=== PATIENT | female | born 1995 | race American Indian/Alaskan Native ===

== ENCOUNTER 2016-11-03 15:38 | Emergency (ER) | payer OTHER ==
[2016-11-03 15:39] VITALS: BMI 18.6
== END 2016-11-03 16:10 | disposition left against medical advice (07) ==
LOC: ED 15:38
DX: Z02.89 Encounter for other administrative examinations (principal); R10.9 Unspecified abdominal pain

== ENCOUNTER 2016-12-10 15:39 | Emergency (ER) | payer SELFPAY ==
[2016-12-10 15:40] VITALS: BMI 18.6
[2016-12-10 15:59] VITALS: TEMP 98.6; O2SAT 100
[2016-12-10] MEDS ORDERED: Sodium Chloride 0.9% 1,000 ML IV STA (16:15)
[2016-12-10] MEDS ORDERED: DiphenhydrAMINE 50 mg/ml Inj IVP STA (16:15)
--- NOTE | 2016-12-10 16:21 | ED PDOC ---
Arrival/HPI <Cherrie Henley - Last Filed: 12/10/16 19:51> - General Historian: Patient - History of Present Illness Time/Duration: Other (2 days) Quality: Aching Context: Home <Odilia Joyner P - Last Filed: 12/12/16 12:11> - General Chief Complaint: Medical Clearance Time Seen by Provider: 12/10/16 16:14 - History of Present Illness Narrative History of Present Illness (Text): 12/10/16 16:18 This 21 yo female with pmh migraines, presents to this ED c/o headache x 2 days. Patient admits similar symptoms in the past. Patient denies trauma, fever, rash, diplopia, dysarthria, weakness, paresthesias, neck pain, sob, cp, abdominal pain, recent travel, sick contact, urinary symptoms, vaginal discharge , leg swelling, calf pain, or abormal gait. She denies other complains. (Odilia Joyner) Past Medical History - Provider Review Nursing Documentation Reviewed: Yes - Infectious Disease Hx of Infectious Diseases: None - Psychiatric Hx Psychophysiologic Disorder: No Hx Anxiety: No Hx Bipolar Disorder: No Hx Depression: No Hx Emotional Abuse: No Hx Hallucinations: No Hx Panic Disorder: No Hx Post Traumatic Stress Disorder: No Hx Psychosis: No Hx Physical Abuse: No Hx Schizophrenia: No Hx Sexual Abuse: No Hx Substance Use: No - Anesthesia Hx Anesthesia: Yes Hx Anesthesia Reactions: No Hx Malignant Hyperthermia: No <Odilia Joyner P - Last Filed: 12/12/16 12:11> Family/Social History - Physician Review Nursing Documentation Reviewed: Yes Family/Social History: No Known Family HX Smoking Status: Never Smoked Hx Alcohol Use: Yes Frequency of alcohol use: Socially Hx Substance Use: No <Odilia Joyner P - Last Filed: 12/12/16 12:11> Allergies/Home Meds <Cherrie Henley - Last Filed: 12/10/16 19:51> <Odilia Joyner P - Last Filed: 12/12/16 12:11> Allergies/Adverse Reactions: Allergies No Known Allergies Allergy (Verified 12/10/16 16:00) Home Medications: Home Meds Medication Instructions Recorded Confirmed No Known Home Med 12/10/16 12/10/16 Review of Systems - Review of Systems Constitutional: Normal. absent: Fatigue, Weight Change, Fevers Eyes: Normal. absent: Vision Changes ENT: Normal. absent: Sore Throat, Rhinorrhea Respiratory: Normal. absent: SOB, Cough Cardiovascular: Normal. absent: Chest Pain, Palpitations Gastrointestinal: Nausea. absent: Abdominal Pain, Diarrhea, Vomiting Genitourinary Female: Normal. absent: Dysuria, Frequency, Hematuria Musculoskeletal: Normal Skin: Normal. absent: Rash Neurological: Headache. absent: Dizziness, Focal Weakness, Gait Changes, Speech Changes, Facial Droop, Disequilibrium, Seizure Endocrine: Normal Hemo/Lymphatic: Normal Psychiatric: Normal <Joyner,Nahim P - Last Filed: 12/12/16 12:11> Physical Exam Temperature: Afebrile Blood Pressure: Normal Pulse: Tachycardic Respiratory Rate: Normal Appearance: Positive for: Well-Appearing, Non-Toxic, Comfortable Pain Distress: None Mental Status: Positive for: Alert and Oriented X 3 - Systems Exam Head: Present: Atraumatic, Normocephalic Pupils: Present: PERRL Extroacular Muscles: Present: EOMI Conjunctiva: Present: Normal Ears: Present: Normal, NORMAL TM Mouth: Present: Moist Mucous Membranes Pharnyx: Present: Normal. No: ERYTHEMA, EXUDATE, TONSILS ENLARGED Nose (External): Present: Atraumatic Nose (Internal): Present: Normal Inspection Neck: Present: Normal Range of Motion. No: Meningeal Signs Respiratory/Chest: Present: Clear to Auscultation, Good Air Exchange. No: Respiratory Distress, Accessory Muscle Use, Wheezes, Retracting, Rhonchi Cardiovascular: Present: Regular Rate and Rhythm, Normal S1, S2. No: Murmurs Abdomen: Present: Normal Bowel Sounds. No: Tenderness, Distention, Peritoneal Signs Back: Present: Normal Inspection. No: CVA Tenderness Upper Extremity: Present: Normal Inspection. No: Cyanosis, Edema Lower Extremity: Present: Normal Inspection. No: Edema Neurological: Present: GCS=15, CN II-XII Intact, Speech Normal, Motor Func Grossly Intact, Normal Sensory Function, Normal Cerebellar Funct, Gait Normal Skin: Present: Warm, Dry, Normal Color. No: Rashes Psychiatric: Present: Alert, Oriented x 3 <Joyner,Nahim P - Last Filed: 12/12/16 12:11> Vital Signs Temp Pulse Resp BP Pulse Ox 12/10/16 17:40 98 H 18 115/60 100 12/10/16 15:52 98.6 F 114 H 19 99/69 L 100 Medical Decision Making <Cherrie Henley - Last Filed: 12/10/16 19:51> Re-evaluation Time: 20:10 Reassessment Condition: Re-examined, Improved - Lab Interpretations Interpretation: Abnormal lab values (Leukopenia on blood test) - EKG Interpretation Interpreted by ED Physician: Yes (NSR @ [address] changes. Normal interval ) Type: 12 lead EKG Comparison: No previous EKG avail. <Odilia Joyner - Last Filed: 12/12/16 12:11> ED Course and Treatment: 12/10/16 19:55 Patient seen and evaluated with PA. On exam, she states she feels "completely better". No fever. No lymphadenopathy palpated. She denies headache. Denies cough or shortness of breath. Neck is supple with no meningeal signs. She is afebrile. Ambulatory. Abdomen soft and nontender. Denies urinary symptoms. As she is ASYMPTOMATIC on re-evaluation with no known exposures or sick contacts or recent travel, will discharge with instructions to closely follow- up with her PMD and I have explicitly discussed with her abnormal blood tests and need for re-evaluation, in laymen's terms. (Cherrie Henley) 12/10/16 19:50 Re-evaluation. Patient feels better. Discussed results and plan with patient who expresses understanding. All questions answered and there is agreement with the plan to discharge home with instructions. Patient stable for discharge. Return if symptoms persist or worsen. (Odilia Joyner) - Lab Interpretations Lab Results: 12/10/16 16:48 12/10/16 16:48 Lab Results 12/10/16 16:48: WBC 2.6 L* D, RBC 4.23, Hgb 13.1, Hct 38.7, MCV 91.5, MCH 31.0, MCHC 33.9, RDW 12.5, Plt Count 202, MPV 9.8, Gran % 45.7 L, Lymph % (Auto) 40.2 H, [place] % (Auto) 13.3 H, Eos % (Auto) 0.4 L, Baso % (Auto) 0.4, Gran # 1.17 L, Lymph # 1.0 L, [place] # 0.3, Eos # 0.0, Baso # 0.01 12/10/16 16:48: Sodium 138, Potassium 4.0, Chloride 102, Carbon Dioxide 26, Anion Gap 14, BUN 10, Creatinine 0.8, Est GFR ( Amer) > 60, Est GFR (Non- Af Amer) > 60, Random Glucose 83, Calcium 9.1, Total Bilirubin 0.4, AST 17, ALT 28, Alkaline Phosphatase 38, Total Protein 7.9, Albumin 3.9, Globulin 3.9, Albumin/Globulin Ratio 1.0 L 12/10/16 16:15: Urine Color Yellow, Urine Appearance Clear, Urine pH 6.5, Ur Specific Clifford 1.020, Urine Protein Negative, Urine Glucose (UA) Negative, Urine Ketones Negative, Urine Blood Moderate H, Urine Nitrate Negative, Urine Bilirubin Negative, Urine Urobilinogen 1.0 H, Ur Leukocyte Esterase Negative, Urine RBC 2 - 5, Urine WBC 0 - 2, Ur Epithelial Cells Many, Urine Bacteria Small , Urine HCG, Qual Negative - Medication Orders Current Medication Orders: Discontinued Medications Diphenhydramine HCl (Benadryl) 25 mg IVP STAT STA Stop: 12/10/16 16:16 Last Admin: 12/10/16 16:53 Dose: 25 mg Sodium Chloride (Sodium Chloride 0.9%) 1,000 mls @ 999 mls/hr IV .Q1H1M STA Stop: 12/10/16 17:15 Last Admin: 12/10/16 16:51 Dose: 999 mls/hr Ketorolac Tromethamine (Toradol) 15 mg IVP STAT STA Stop: 12/10/16 16:18 Last Admin: 12/10/16 16:53 Dose: 15 mg Metoclopramide HCl (Reglan) 10 mg IVP STAT STA Stop: 12/10/16 16:16 Last Admin: 12/10/16 16:53 Dose: 10 mg - 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 / has examined the patient and agrees with the treatment plan. <Cherrie Henley - Last Filed: 12/10/16 19:51> Disposition/Present on Arrival - Present on Arrival Any Indicators Present on Arrival: No - Disposition Have Diagnosis and Disposition been Completed?: Yes Disposition Time: 19:51 Patient Plan: Discharge <Cherrie Henley - Last Filed: 12/10/16 19:51> - Present on Arrival Any Indicators Present on Arrival: No History of DVT/PE: No History of Uncontrolled Diabetes: No Urinary Catheter: No History of Decub. Ulcer: No History Surgical Site Infection Following: None - Disposition Patient Plan: Discharge <Odilia Joyner - Last Filed: 12/12/16 12:11> - Disposition Diagnosis: Viral illness Disposition: HOME/ ROUTINE Condition: GOOD Discharge Instructions (ExitCare): Viral Syndrome (ED) Additional Instructions: You have a low "white blood count". Your white blood count was "2.6" today. This can be seen at times with a viral illness, but this must be rechecked. If you develop ANY return of any symptoms, any headaches, any sore throat, any cough, any neck pain, ANY RASH, any abdominal pain, any nausea or vomiting, any chest pain or shortness of breath, any numbness or weakness, any unsteadiness, any chills or FEVERS, get rechecked immediately. Take motrin for any return of pain or discomfort, but get rechecked. You must follow-up with your physician to have your "WHITE BLOOD COUNT" rechecked, and follow-up with a applied exercise physiologist as well. Referrals: Tracy Grandaos MD [Primary Care Provider] - Follow up with primary
[2016-12-10 16:57] LABS: ADD MANUAL DIFF? NO
[2016-12-10 17:11] LABS: ALKALINE PHOSPHATASE 38 U/L (38-133); ALT/SGPT 28 U/L (7-56); AST/SGOT 17 U/L (15-39); BILIRUBIN,TOTAL 0.4 mg/dL (0.2-1.3); BLOOD UREA NITROGEN 10 mg/dL (7-21); CALCIUM 9.1 mg/dL (8.4-10.5); CARBON DIOXIDE 26 mmol/L (21-33); CHLORIDE 102 mmol/L (98-107); GFR AFRICAN-AMERICAN > 60; GLUCOSE,RANDOM 83 mg/dL (70-110); SODIUM 138 mmol/L (132-148); TOTAL PROTEIN 7.9 g/dL (5.8-8.3)
[2016-12-10 17:21] LABS: BASO # 0.01 K/mm3 (0.0-2.0); BASO % 0.4 % (0.0-3.0); EOS % 0.4 % (1.5-5.0); GRAN # 1.17 (1.4-6.5); GRAN % 45.7 % (50.0-68.0); HEMATOCRIT 38.7 % (36.0-48.0); LYMPH % 40.2 % (22.0-35.0); MEAN CELL VOLUME 91.5 fL (80.0-105.0); MEAN CORPUSCULAR HGB CONC 33.9 g/dl (31.0-37.0); MEAN PLATELET VOLUME 9.8 fl (7.0-11.0); MONO # 0.3 (0.1-0.6); MONO % 13.3 % (1.0-6.0); PLATELET COUNT 202 10^3/uL (120.0-450.0); RED CELL DISTRIBUTION WIDTH 12.5 % (11.5-14.5)
[2016-12-10 17:22] LABS: PH,URINE 6.5 (4.7-8.0); URINE BILIRUBIN NEGATIVE (NEGATIVE); URINE BLOOD MODERATE (NEGATIVE); URINE GLUCOSE (UA) NEGATIVE (NEGATIVE); URINE KETONE NEGATIVE (NEGATIVE); URINE LEUKOCYTE ESTERASE NEGATIVE Leu/uL (NEGATIVE); URINE PROTEIN NEGATIVE mg/dL (<30 mg/dL)
[2016-12-10 17:28] LABS: WHITE BLOOD COUNT 2.6 10^3/ul (4.5-11.0)
[2016-12-10 17:28] LABS: URINE APPEARANCE CLEAR (CLEAR); URINE COLOR YELLOW (YELLOW)
[2016-12-10 17:46] LABS: URINE BACTERIA SMALL (NEG); URINE EPITHELIAL CELLS MANY /hpf (0-5); URINE WBC 0 - 2 /hpf (0-6)
[2016-12-10 18:49] VITALS: BP 115/60; PULSE 98; RESP 18
--- NOTE | 2016-12-11 10:24 | CARD ---
APPROVED REPORT EKG Measurement Heart [id number] <Conclusion> Normal sinus rhythm Normal ECG
== END 2016-12-10 20:27 | disposition home or self-care (01) ==
LOC: ED 15:39
DX: B34.9 Viral infection, unspecified (principal)
CPT/HCPCS: 80053; 81001; 84703; 85025; 93005; 96374; 96375; 99283; J1200; J1885; J2765; J7040

== ENCOUNTER 2017-02-18 09:00 | Emergency (ER) | payer OTHER ==
[2017-02-18 09:15] VITALS: TEMP 98.6; BMI 16.8
--- NOTE | 2017-02-18 09:51 | ED PDOC ---
Arrival/HPI - General Chief Complaint: Flu-like Symptoms Time Seen by Provider: 02/18/17 09:43 Historian: Patient - History of Present Illness Narrative History of Present Illness (Text): 02/18/17 09:43 This 21 yo female presents to this ED c/o nausea, vomiting , and sore throat x 2 weeks. Symptoms has worsen today. Denies fever, sob, cp, andominal pain, rectal bleeding, trauma, sick contact, or recent travel. LMP: January 29, 2017 Time/Duration: Other (2 weeks) Context: Home Past Medical History - Provider Review Nursing Documentation Reviewed: Yes - Infectious Disease Hx of Infectious Diseases: None - Psychiatric Hx Psychophysiologic Disorder: No Hx Anxiety: No Hx Bipolar Disorder: No Hx Depression: No Hx Emotional Abuse: No Hx Hallucinations: No Hx Panic Disorder: No Hx Post Traumatic Stress Disorder: No Hx Psychosis: No Hx Physical Abuse: No Hx Schizophrenia: No Hx Sexual Abuse: No Hx Substance Use: No - Anesthesia Hx Anesthesia: Yes Hx Anesthesia Reactions: No Hx Malignant Hyperthermia: No Family/Social History - Physician Review Nursing Documentation Reviewed: Yes Family/Social History: No Known Family HX Smoking Status: Never Smoked Hx Alcohol Use: Yes Frequency of alcohol use: Socially Hx Substance Use: No Allergies/Home Meds Allergies/Adverse Reactions: Allergies No Known Allergies Allergy (Verified 02/18/17 09:08) Review of Systems - Review of Systems Constitutional: Normal. absent: Fatigue, Weight Change, Fevers, Night Sweats Eyes: Normal ENT: Sore Throat. absent: Rhinorrhea, Epistaxis, Sinus Congestion Respiratory: Normal. absent: SOB, Cough Cardiovascular: Normal Gastrointestinal: Nausea, Vomiting. absent: Abdominal Pain, Stool Changes, Hematochezia, Anorexia Genitourinary Female: Normal. absent: Dysuria, Frequency, Hematuria, Vaginal Bleeding, Vaginal Discharge Musculoskeletal: Normal. absent: Back Pain, Neck Pain Skin: Normal. absent: Rash Neurological: Normal Endocrine: Normal Hemo/Lymphatic: Normal Psychiatric: Normal Physical Exam Vital Signs Temp Pulse Resp BP Pulse Ox 02/18/17 09:12 98.6 F 98 H 18 101/71 100 Temperature: Afebrile Blood Pressure: Normal Pulse: Regular Respiratory Rate: Normal Appearance: Positive for: Well-Appearing, Non-Toxic, Comfortable Pain Distress: None Mental Status: Positive for: Alert and Oriented X 3 - Systems Exam Head: Present: Atraumatic, Normocephalic Pupils: Present: PERRL Extroacular Muscles: Present: EOMI Conjunctiva: Present: Normal Mouth: Present: Moist Mucous Membranes Neck: Present: Normal Range of Motion Respiratory/Chest: Present: Clear to Auscultation, Good Air Exchange. No: Respiratory Distress, Accessory Muscle Use, Wheezes, Decreased Breath Sounds, Rales, Retracting Cardiovascular: Present: Regular Rate and Rhythm, Normal S1, S2. No: Murmurs Abdomen: Present: Normal Bowel Sounds. No: Tenderness, Distention, Peritoneal Signs, Rebound, Guarding Back: Present: Normal Inspection Upper Extremity: Present: Normal Inspection, Normal ROM, NORMAL PULSES, Neurovascularly Intact, Capillary Refill < 2s. No: Cyanosis, Edema Lower Extremity: Present: Normal Inspection, NORMAL PULSES, Normal ROM, Neurovascularly Intact, Capillary Refill < 2 s. No: Edema Neurological: Present: GCS=15, CN II-XII Intact, Speech Normal, Motor Func Grossly Intact, Normal Sensory Function, Normal Cerebellar Funct, Gait Normal, Memory Normal Skin: Present: Warm, Dry, Normal Color. No: Rashes Psychiatric: Present: Alert, Oriented x 3, Normal Insight, Normal Concentration Medical Decision Making ED Course and Treatment: 02/18/17 10:04 ED test was positive. Patient was recommended to f/u SOFTWARE IMPLEMENTATION SPECIALIST doctor. multivitamin ordered. Re-evaluation Time: 10:04 Reassessment Condition: Re-examined, Improved Disposition/Present on Arrival - Present on Arrival Any Indicators Present on Arrival: No History of DVT/PE: No History of Uncontrolled Diabetes: No Urinary Catheter: No History of Decub. Ulcer: No History Surgical Site Infection Following: None - Disposition Have Diagnosis and Disposition been Completed?: Yes Diagnosis: Disposition: HOME/ ROUTINE Disposition Time: 10:05 Patient Plan: Discharge Patient Problems: Current Active Problems Problem Status Onset Acute Condition: GOOD Discharge Instructions (ExitCare): (ED) Additional Instructions: Call private doctor for follow up visit in 1-2 days. Take medication as instructed. Return to emergency if symptoms worsen. [facility] does not have SOFTWARE IMPLEMENTATION SPECIALIST department Prescriptions: [id number]/Iron/Folic Acid/Dha [Prena1 Lyndsey Softgel] 1 each PO DAILY #30 cap.ir. Referrals: PCP,NO [Primary Care Provider] - Follow up with primary [employer] [Outside] - Follow up with primary [facility] [Outside] - Follow up with primary
[2017-02-18 12:24] VITALS: BP 112/71; PULSE 82; RESP 16; O2SAT 99
== END 2017-02-18 10:20 | disposition home or self-care (01) ==
LOC: ED 09:00
DX: O26.899 Other specified pregnancy related conditions, unspecified trimester (principal); Z3A.00 Weeks of gestation of pregnancy not specified